=== PATIENT | male | born 1965 | race Hispanic/Latino ===

== ENCOUNTER 2018-09-05 02:46 | Observation (INO) | payer MEDICAID ==
--- NOTE | 2018-09-05 03:22 | ED PDOC ---
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 Patient states he recently had a lithotripsy performed for a 8mm left kidney stone on 08/29/2018 and is scheduled for another lithotripsy for a 4mm right kidney stone. Patient states tonight he developed dysuria with associated LLQ pain, chills, vomiting, and difficulty tolerating PO secondary to vomiting. Patient states he took Tylenol with Codeine, prescribed to him by his urologist, with no significant past medical history. Patient denies any fever, chest pain, shortness of breath, diarrhea, back pain, neck pain, headache, dizziness, or any other complaints. Symptom Onset: Gradual Symptom Course: Unchanged Activities at Onset: Light Context: Home Past Medical History - Provider Review Nursing Documentation Reviewed: Yes - Infectious Disease Hx of Infectious Diseases: None - Cardiac Hx Cardiac Disorders: Yes Hx Hypertension: Yes - Pulmonary Hx Respiratory Disorders: No - Neurological Hx Neurological Disorder: No - HEENT Hx HEENT Disorder: No - Renal Hx Renal Disorder: Yes Hx Kidney Stones: Yes Other/Comment: lithotripsy - Endocrine/Metabolic Hx Endocrine Disorders: No - Hematological/Oncological Hx Blood Disorders: No - Integumentary Hx Dermatological Disorder: No - Musculoskeletal/Rheumatological Hx Musculoskeletal Disorders: No - Gastrointestinal Hx Gastrointestinal Disorders: No - Genitourinary/Gynecological Hx Genitourinary Disorders: No - Psychiatric Hx Psychophysiologic Disorder: No Hx Substance Use: No Family/Social History - Physician Review Nursing Documentation Reviewed: Yes Family/Social History: Unknown Family HX Smoking Status: Never Smoked Hx Alcohol Use: Yes Frequency of alcohol use: Socially Hx Substance Use: No Allergies/Home Meds Allergies/Adverse Reactions: Allergies No Known Allergies Allergy (Verified 09/05/18 02:53) Home Medications: Home Meds Medication Instructions Recorded Confirmed Lisinopril [Zestril] 2.5 mg PO DAILY 09/05/18 09/05/18 amLODIPine [Norvasc] 10 mg PO 1800 09/05/18 09/05/18 Review of Systems - Physician Review All systems were reviewed & negative as marked: Yes - Review of Systems Constitutional: Other (+chills) Eyes: Normal ENT: Normal Respiratory: Normal. absent: SOB, Cough Cardiovascular: Normal. absent: Chest Pain Gastrointestinal: Abdominal Pain, Nausea, Vomiting Genitourinary Male: Dysuria. absent: Frequency, Hematuria, Urinary Output Changes Musculoskeletal: Normal. absent: Back Pain, Neck Pain Skin: Normal. absent: Rash Neurological: Normal. absent: Headache, Dizziness Endocrine: Normal Hemo/Lymphatic: Normal Psychiatric: Normal Physical Exam Vital Signs Reviewed: Yes Vital Signs Temp Pulse Resp BP Pulse Ox 09/05/18 02:55 98.0 F 88 18 155/100 H 98 Temperature: Afebrile Blood Pressure: Hypertensive Pulse: Regular Respiratory Rate: Normal Appearance: Positive for: Well-Appearing, Non-Toxic, Comfortable Pain Distress: None Mental Status: Positive for: Alert and Oriented X 3 - Systems Exam Head: Present: Atraumatic, Normocephalic Pupils: Present: PERRL Extroacular Muscles: Present: EOMI Conjunctiva: Present: Normal Mouth: Present: Moist Mucous Membranes Neck: Present: Normal Range of Motion Respiratory/Chest: Present: Clear to Auscultation, Good Air Exchange. No: Respiratory Distress, Accessory Muscle Use Cardiovascular: Present: Regular Rate and Rhythm, Normal S1, S2. No: Murmurs Abdomen: No: Tenderness, Distention, Peritoneal Signs Back: Present: Normal Inspection Upper Extremity: Present: Normal Inspection. No: Cyanosis, Edema Lower Extremity: Present: Normal Inspection. No: Edema Neurological: Present: GCS=15, CN II-XII Intact, Speech Normal Skin: Present: Warm, Dry, Normal Color. No: Rashes Psychiatric: Present: Alert, Oriented x 3, Normal Insight, Normal Concentration Medical Decision Making ED Course and Treatment: 09/05/18 03:22 Impression: 53 year old male complaining of chills, LLQ pain, vomiting, and dysuria. Plan: -- CT Abdomen and Pelvis w/o contrast -- Labs -- Urinalysis -- IV fluids -- Zofran -- Morphine -- Reassess and disposition Progress Notes: 09/05/18 04:22 CT Abdomen and Pelvis reviewed, shows: The visualized lung bases are unremarkable. Normal unenhanced liver. Normal gallbladder and extrahepatic biliary system. Normal unenhanced spleen. Normal pancreas. Normal bilateral adrenal glands. Bilateral renal stones ranging in size between 3 and 6 mm. 5 obstructing stones in the distal aspect of the left ureter ranging in size between 4 and 6 mm. Normal size of the right kidney. There is no right renal mass. There is no right hydronephrosis. Normal visualized right ureter. Normal size of the left kidney. There is no left renal mass. There is mild left hydroureteronephrosis. Prominent left perinephric fat stranding. Normal visualized stomach. Normal small intestine. Uncomplicated diverticulosis of the colon. The appendix is visualized and appears normal. There is no demonstrated peritoneal fluid. Normal abdominal aorta. Normal inferior vena cava. Normal retroperitoneum. Normal urinary bladder. There is no pelvic mass lesion or lymphadenopathy. There is no pelvic fluid. Bilateral fat containing inguinal hernias without incarceration. Normal osseous structures. IMPRESSION: Bilateral nephrolithiasis. 5 obstructing stones in the distal aspect of the left ureter ranging in size between 4 and 6 mm. Electronically signed on Sep 05, 2018 4:21:31 AM EST by: Chapo Hines M.D., Certified by ABR, MSK, Neuroradiology 09/05/18 05:[address] Beltrán, who will consult on case. 09/05/18 05:[address] Fisher, who is aware and agrees with plan. Accepts pt in to his service. Pt will go to [facility] observation for renal colic. - Lab Interpretations I have reviewed the lab results: Yes - RAD Interpretation Curtain Fitter: Radiologist - Scribe Statement The provider has reviewed the documentation as recorded by the Alicia March Provider Scribe Attestation: All medical record entries made by the Scribchetan were at my direction and personally dictated by me. I have reviewed the chart and agree that the record accurately reflects my personal performance of the history, physical exam, medical decision making, and the department course for this patient. I have also personally directed, reviewed, and agree with the discharge instructions and disposition. Disposition/Present on Arrival - Present on Arrival Any Indicators Present on Arrival: No History of DVT/PE: No History of Uncontrolled Diabetes: No Urinary Catheter: No History of Decub. Ulcer: No History Surgical Site Infection Following: None - Disposition Have Diagnosis and Disposition been Completed?: Yes Diagnosis: Renal colic on left side Disposition: HOSPITALIZED Disposition Time: 05:30 Condition: GOOD
[2018-09-05] MEDS ORDERED: Sodium Chloride 0.9% 1,000 ML IV STA ×2 (03:23→05:32)
[2018-09-05] MEDS ORDERED: Morphine 2 mg/ml ISec IVP STA ×2 (03:24→05:31)
[2018-09-05 03:56] LABS: ALB/GLOB RATIO 1.3 (1.1-1.8); ALBUMIN 4.7 g/dL (3.0-4.8); ALT/SGPT 43 U/L (7-56); AST/SGOT 38 U/L (17-59); BLOOD UREA NITROGEN 21 mg/dL (7-21); CALCIUM 9.7 mg/dL (8.4-10.5); GFR NON-AFRICAN AMERICAN > 60
[2018-09-05 04:14] LABS: BASO # 0.02 K/mm3 (0.0-2.0); BASO % 0.2 % (0.0-3.0); EOS # 0.1 (0.0-0.7); EOS % 0.4 % (1.5-5.0); GRAN # 9.78 (1.4-6.5); GRAN % 84.5 % (50.0-68.0); HEMOGLOBIN 15.4 g/dL (14.0-18.0); LYMPH # 1.2 (1.2-3.4); MEAN CELL VOLUME 88.3 fl (80.0-105.0); MEAN CORPUSCULAR HEMOGLOBIN 30.1 pg (25.0-35.0); MEAN CORPUSCULAR HGB CONC 34.1 g/dl (31.0-37.0); MEAN PLATELET VOLUME 11.4 fl (7.0-11.0); MONO # 0.6 (0.1-0.6); MONO % 4.9 % (1.0-6.0); RBC 5.12 10^6/uL (3.5-6.1); RED CELL DISTRIBUTION WIDTH 12.1 % (11.5-14.5); WHITE BLOOD COUNT 11.6 10^3/uL (4.5-11.0)
[2018-09-05 04:17] LABS: INR 1.03; PARTIAL THROMBOPLASTIN TIME 30.6 Seconds (25.1-36.5); PROTHROMBIN TIME 11.8 SECONDS (9.4-12.5); URINE APPEARANCE CLEAR (CLEAR); URINE BILIRUBIN NEGATIVE (NEGATIVE); URINE BLOOD TRACE-LYSED (NEGATIVE); URINE COLOR YELLOW (YELLOW); URINE GLUCOSE (UA) NEGATIVE (NEGATIVE); URINE LEUKOCYTE ESTERASE NEGATIVE Leu/uL (NEGATIVE); URINE PROTEIN NEGATIVE mg/dL (<30 mg/dL); URINE UROBILINOGEN 0.2 E.U./dL (<1 E.U./dL)
[2018-09-05 04:21] LABS: URINE EPITHELIAL CELLS 0 - 2 /hpf (0-5); URINE RBC 0 - 2 /hpf (0-2); URINE WBC 0 - 2 /hpf (0-6)
[2018-09-05] MEDS ORDERED: cefTRIAXone 1 gm 1 GM/100 ML BAG IVPB STA (04:27)
[2018-09-05] MEDS ORDERED: Morphine 2 mg/ml ISec IVP PRN (05:33)
[2018-09-05] MEDS ORDERED: Sodium Chloride 0.45% 1,000 ML IV SCH (09:00)
--- NOTE | 2018-09-05 09:59 | CT ---
Date of service: 09/05/2018 PROCEDURE: CT Abdomen and Pelvis without intravenous contrast HISTORY: left flank pain COMPARISON: None. TECHNIQUE: Without contrast.. Contrast dose: Radiation dose: Total exam DLP = 878.99 mGy-cm. This CT exam was performed using one or more of the following dose reduction techniques: Automated exposure control, adjustment of the mA and/or kV according to patient size, and/or use of iterative reconstruction technique. FINDINGS: LOWER THORAX: Unremarkable. LIVER: Unremarkable. No gross lesion or ductal dilatation. GALLBLADDER AND BILE DUCTS: Unremarkable. PANCREAS: Unremarkable. No gross lesion or ductal dilatation. SPLEEN: Unremarkable. ADRENALS: Unremarkable. No mass. KIDNEYS AND URETERS: 5 mm stone in the upper pole of the right kidney. Multiple small nonobstructing stones in the left kidney. Multiple stones are seen at the left UVJ. The stones range in size from 4-6 mm. VASCULATURE: Unremarkable. No aortic aneurysm. No aortic atherosclerotic calcification or mural plaque present. BOWEL: Unremarkable. No obstruction. No gross mural thickening. APPENDIX: Unremarkable. Normal appendix. PERITONEUM: Unremarkable. No free fluid. No free air. LYMPH NODES: Unremarkable. No enlarged lymph nodes. BLADDER: Unremarkable. REPRODUCTIVE: Unremarkable. BONES: No acute fracture. OTHER FINDINGS: The report concurs with the preliminary [facility] report IMPRESSION: 5 mm stone in the upper pole of the right kidney. Multiple small nonobstructing stones in the left kidney. Multiple stones are seen at the left UVJ. The stones range in size from 4-6 mm.
[2018-09-05] MEDS: cefTRIAXone 1 gm 1 GM/100 ML BAG IVPB SCH (11:19)
[2018-09-05 12:48] VITALS: BMI 30.4
--- NOTE | 2018-09-05 14:57 | HP ---
DATE OF EXAM: 09/05/2018 HISTORY OF PRESENT ILLNESS: He has been dealing with kidney stones for a while now. He recently just had lithotripsy with Dr. Beltrán and I think he passed four stones, has an 8 mm left kidney stone in that area possible hydronephrosis. He has had left lower quadrant pain, chills, vomiting, very uncomfortable on the left side. He is now with IV fluids, IV antibiotics and possible lithotripsy over a cystoscopy with laser, we will see. He is a 52-year-old white male, I know him for many years. PAST MEDICAL HISTORY: Nephrolithiasis, hypertension and kidney stones. FAMILY HISTORY: Unknown family history. SOCIAL HISTORY: No smoking. Occasional alcohol. No drugs. ALLERGIES: NO KNOWN DRUG ALLERGIES. MEDICATIONS: He takes lisinopril 2.5 mg a day and Norvasc 10 mg daily. REVIEW OF SYSTEMS: He has chills. No acute vision or hearing changes. No shortness of breath or cough. No chest pain or palpitations. He has abdominal pain, nausea and vomiting. No constipation or diarrhea. He has problems urinating. He has got some dysuria. No back pain. He does have left CVA tenderness. No neck pain. No rashes. No headache or dizziness. PHYSICAL EXAMINATION: VITAL SIGNS: He has a 98 temperature, 88 pulse, 18 respiratory rate, 155/100 blood pressure and 98% O2 sat. GENERAL: He will go back on his medications, if it is okay with Dr. Beltrán before he does the procedure. He is well appearing. There is little bit and lot of pain on left side. Alert and oriented x3. HEENT: Head is atraumatic and normocephalic. Extraocular muscles are intact. Pupils reactive to light and accommodation. Throat is moist. NECK: Supple. HEART: Regular rate. Normal S1, S2. LUNGS: Decreased breath sounds, but clear to auscultation. ABDOMEN: Soft and nontender. Positive bowel sounds. He does have left CVA tenderness to palpation. Positive loyds sign. EXTREMITIES: No extremity edema. NEUROLOGIC: GCS is 15. Cranial nerves II-XII grossly intact. Skin is warm and dry. Alert and oriented x3. LYMPHATICS: Thyroid midline. No palpable appreciable lymphadenopathy. LABORATORY DATA: He has bilateral nephrolithiasis 5-mm obstructing stone in the distal aspect of left ureter, possibility of hydronephrosis. Dr. Beltrán is his urologist. He had blood test. His urine showed trace blood. He has 138 sodium, potassium 3.9, BUN 21, creatinine 1, GFR greater than 60, sugar is 147, calcium is 9.7, total bili is 0.9, AST is 30, ALT is 43, alk phos 73, total protein is 8.3, albumin is 4.7 and globulin 3.6. INR is 1.03. White count 7.6, hemoglobin 15.4, hematocrit 45.2 and platelets of 237. He will have a consult with urology, he is n.p.o., IV fluids and I will put him back on his blood pressure medications, Zofran, Rocephin and morphine. He is here for kidney stones and left-sided nephritis. Gino Fisher DO MTDD
--- NOTE | 2018-09-05 16:06 | PCM.URO ---
Urology Progress Note - Objective Lab Studies: Reviewed (observation for one day if not better ureteroscopy and laser tomorrow at 7;30 am) Lab Results Last 24 Hours: Laboratory Results - last 24 hr 09/05/1818 09/05/18 03:28 03:28 03:28 WBC 11.6 H RBC 5.12 Hgb 15.4 Hct 45.2 MCV 88.3 MCH 30.1 MCHC 34.1 RDW 12.1 Plt Count 237 MPV 11.4 H Gran % 84.5 H Lymph % (Auto) 10.0 L [place] % (Auto) 4.9 Eos % (Auto) 0.4 L Baso % (Auto) 0.2 Gran # 9.78 H Lymph # (Auto) 1.2 [place] # (Auto) 0.6 Eos # (Auto) 0.1 Baso # (Auto) 0.02 PT INR APTT Sodium 138 Potassium 3.9 Chloride 99 Carbon Dioxide 27 Anion Gap 16 BUN 21 Creatinine 1.0 Est GFR ( Amer) > 60 Est GFR (Non-Af Amer) > 60 Random Glucose 147 H Calcium 9.7 Total Bilirubin 0.9 AST 38 ALT 43 Alkaline Phosphatase 73 Total Protein 8.3 Albumin 4.7 Globulin 3.6 Albumin/Globulin Ratio 1.3 Urine Color Yellow Urine Appearance Clear Urine pH 6.0 Ur Specific [place] 1.025 Urine Protein Negative Urine Glucose (UA) Negative Urine Ketones Negative Urine Blood Trace-lysed H Urine Nitrate Negative Urine Bilirubin Negative Urine Urobilinogen 0.2 Ur Leukocyte Esterase Negative Urine RBC 0 - 2 Urine WBC 0 - 2 Ur Epithelial Cells 0 - 2 09/05/18 03:28 WBC RBC Hgb Hct MCV MCH MCHC RDW Plt Count MPV Gran % Lymph % (Auto) [place] % (Auto) Eos % (Auto) Baso % (Auto) Gran # Lymph # (Auto) [place] # (Auto) Eos # (Auto) Baso # (Auto) PT 11.8 INR 1.03 APTT 30.6 Sodium Potassium Chloride Carbon Dioxide Anion Gap BUN Creatinine Est GFR ( Amer) Est GFR (Non-Af Amer) Random Glucose Calcium Total Bilirubin AST ALT Alkaline Phosphatase Total Protein Albumin Globulin Albumin/Globulin Ratio Urine Color Urine Appearance Urine pH Ur Specific [place] Urine Protein Urine Glucose (UA) Urine Ketones Urine Blood Urine Nitrate Urine Bilirubin Urine Urobilinogen Ur Leukocyte Esterase Urine RBC Urine WBC Ur Epithelial Cells Intake & Output: Intake & Output 09/04/18 09/05/18 09/05/18 18:59 06:59 18:59 Weight 212 lb Other: Voiding Method Urinal Vital Signs: Vital Signs - 24 hr 09/05/18 09/05/18 09/05/18 02:55 05:33 05:44 Temperature 98.0 F Pulse Rate 88 74 Pulse Rate [ 65 Brachial] Respiratory 18 20 18 Rate Blood Pressure 155/100 H 153/85 H O2 Sat by Pulse 98 94 L Oximetry 09/05/18 09/05/18 09/05/18 06:00 11:53 11:54 Temperature 98 F Pulse Rate 65 65 Pulse Rate [ Brachial] Respiratory 20 Rate Blood Pressure 141/94 H 141/94 H 141/94 H O2 Sat by Pulse 98 Oximetry 09/05/18 14:00 Temperature 99.6 F Pulse Rate 70 Pulse Rate [ Brachial] Respiratory 20 Rate Blood Pressure 142/98 H O2 Sat by Pulse 94 L Oximetry
[2018-09-06] MEDS ORDERED: Iohexol 240 (50 ml) ONE (07:20)
[2018-09-06] MEDS ORDERED: Propofol 10 mg/ml Inj (20 ML) ONE (07:36)
[2018-09-06] MEDS ORDERED: Midazolam 2 MG/2 ML VIAL ONE (07:59)
[2018-09-06] MEDS ORDERED: Oxycodone/Acetaminophen 5/325 mg Tab PO PRN (07:59)
[2018-09-06] MEDS ORDERED: Magnesium Hydroxide Susp 30 ml UD PO ONE (08:00)
[2018-09-06] MEDS ORDERED: cefTRIAXone (Rocephin) 1 gm Inj ONE (08:16)
[2018-09-06] MEDS ORDERED: Phenylephrine 10 mg/ml Inj ONE (08:30)
[2018-09-06] MEDS ORDERED: Iohexol 240 (50 ml) IVP ONE ×2 (08:37)
[2018-09-06] MEDS ORDERED: HYDROmorphone 1 mg/ml ISec IVP PRN (09:07)
[2018-09-06 09:14] VITALS: RESP 12; TEMP 98
[2018-09-06] MEDS ORDERED: Lactated Ringer's 1,000 ML IV SCH (09:15)
[2018-09-06] MEDS ORDERED: Gentamicin 80 mg/2mL Inj. ONE (09:27)
--- NOTE | 2018-09-06 09:28 | RAD ---
Date of service: 09/05/2018 HISTORY: compare with previous film // describe distal sto COMPARISON: None available. FINDINGS: BOWEL: Normal. No obstruction. No free air. Mild constipation right-sided: BONES: Normal. OTHER FINDINGS: None. IMPRESSION: No active disease.
[2018-09-06] MEDS ORDERED: HYDROmorphone 1 mg/ml ISec ONE (09:33)
--- NOTE | 2018-09-06 10:45 | RAD ---
Date of service: 09/06/2018 PROCEDURE: Fluoroscopy up to 1 hr HISTORY: LEFT RETRO GRADE STONE REMOVAL COMPARISON: TECHNIQUE: Fluoroscopy was provided in the operating room. Fourteen images were submitted showing passage of wires and instruments into the left ureter. FINDINGS: IMPRESSION: As above
[2018-09-06 10:49] VITALS: O2SAT 96
--- NOTE | 2018-09-06 11:38 | DS ---
HISTORY OF PRESENT ILLNESS: Status post fifth cystoscopy with Dr. Beltrán where they did a laser of some kidney stones and he left a stent in and he could pull out in the next 2 days. He is on Dilaudid, lactated Ringer, morphine, Norvasc, Percocet, Rocephin, IV fluids, Toradol, Zestril, and Zofran. I saw him in the PACU. I discussed with Dr. Beltrán. He will have to be discharged later this afternoon. PHYSICAL EXAMINATION: VITAL SIGNS: He has a 98 temperature, 78 pulse, 140/95 blood pressure, 12 respiratory rate, and 96% O2 sat on nasal cannula 2 liters. HEENT: Head is atraumatic and normocephalic. Very groggy. HEART: Regular rate. LUNGS: Decreased breath sounds, but clear. ABDOMEN: Soft. EXTREMITIES: No edema. He had kidney stones with mild hydronephrosis. LABORATORY DATA: He has 11.6 white count, 15.4 hemoglobin, 45.2 hematocrit with 237 platelets. 138 sodium, potassium 3.9, BUN 21, and creatinine 1, GFR is greater than 60. Blood sugar 147. Calcium is 9.7, total bilirubin is 0.9, AST is 30, ALT is 43, alkaline phosphatase 73, and total protein 8.3. ASSESSMENT AND PLAN: He will be discharged later this afternoon, be with stent for 2 days, then he can pull it out. He seems to go back to his regular medications, which are amlodipine and lisinopril what sort of medication Dr. Beltrán wants him to have and I will see him in the office next week. The patient with kidney stones and mild hydronephrosis. He is in observation. Gino Fisher DO
[2018-09-06] MEDS: cefTRIAXone 1 gm 1 GM/100 ML BAG IVPB SCH (11:42)
[2018-09-06 11:43] VITALS: BP 143/85; PULSE 75
[2018-09-06 11:49] LABS: HEMOGLOBIN 14.7 g/dL (14.0-18.0); MEAN CELL VOLUME 89.4 fl (80.0-105.0); MEAN CORPUSCULAR HEMOGLOBIN 29.9 pg (25.0-35.0); MEAN CORPUSCULAR HGB CONC 33.5 g/dl (31.0-37.0); MEAN PLATELET VOLUME 10.7 fl (7.0-11.0); RBC 4.91 10^6/uL (3.5-6.1); RED CELL DISTRIBUTION WIDTH 12.2 % (11.5-14.5); WHITE BLOOD COUNT 7.8 10^3/uL (4.5-11.0)
[2018-09-06 12:07] LABS: ALB/GLOB RATIO 1.3 (1.1-1.8); ALBUMIN 4.3 g/dL (3.0-4.8); ALT/SGPT 35 U/L (7-56); AST/SGOT 26 U/L (17-59); BLOOD UREA NITROGEN 21 mg/dL (7-21); CALCIUM 9.2 mg/dL (8.4-10.5); GFR NON-AFRICAN AMERICAN > 60
--- NOTE | 2018-09-09 10:52 | CON ---
DATE: 09/05/2018 REASON FOR CONSULTATION: Severe left renal colic. HISTORY OF PRESENT ILLNESS: Mr. is a very pleasant gentleman who last week underwent a shockwave lithotripsy. On the left side, he has bilateral stone disease; in fact he is scheduled for 09/06/2018; although we may have to delay this for right-sided as well. This procedure itself went uncomplicated. During the course of the week, we had recommended the patient to take antibiotics and Flomax and Motrin. But for various reasons, he was unable to take everything. Side effects and worries about side effects. Either way, during the course of the week, he has been doing reasonably well . Last evening, he called me that he was having severe pain; we brought him to the emergency room. We did a CAT scan overnight; we actually spoke about 4 o'clock this morning. I showed him the CAT scan results and he has distal ureteral stones of collection what we call is urology Steinstrasse. The patient is now admitted for observation and analgesics and fluid in the hope that may be the stone will pass. He has about 4 or 5 stones on top of each other. Regarding his original left renal stone on the CAT scan, there are 1 or 2 little pieces of stone fragments still there. But the main obstruction is below here. PAST MEDICAL AND SURGICAL HISTORY: As listed on the chart. Patient of Dr. Fisher's. REVIEW OF SYSTEMS: Listed above, otherwise noncontributory. SOCIAL HISTORY: Essentially unremarkable. PHYSICAL EXAMINATION: GENERAL: A well-nourished male, currently he is resting comfortably. VITALS SIGNS: Within normal limits. LUNGS: Clear. HEART: Normal S1 and S2. ABDOMEN: Soft. There is no rebound. No guarding. There is no evidence of acute abdomen. GENITOURINARY: Normal phallus without discharge. No testicular masses. The remainder of the exam is otherwise unremarkable. (Rectal exam deferred, so cysto mentioned in this dictation is a normal 20 g prostate, felt smooth). CT scan as noted again the presence of distal ureteral stone; I do want to mention of course also we can still see his right stone. We haven't examined the of this. In terms of his left side, we see there is a left distal ureteral stone. DIAGNOSES: Severe left renal colic, left hydronephrosis; all secondary to distal ureteral stones; 4 or 5 in total. What we call Steinstrasse. PLAN: As follows. We are going to observe the patient for now and see how he does; we offered an immediate cystoscopy, ureteroscopy, laser lithotripsy versus observation; may be he will pass. The patient is on analgesics, anti-inflammatories, IV fluids, pain control. We will monitor him closely and then make further plans. clinically, we discussed options risks, benefits, and treatment alternatives. Plans are to follows. Thank you for the Urology consult. Mark Beltrán MD
--- NOTE | 2018-09-09 15:22 | OP ---
PROCEDURE DATE: 09/06/2018 PREOPERATIVE DIAGNOSES: Steinstrasse, retained stones, left hydronephrosis, left stone fragments, severe renal colic, and hydronephrosis. POSTOPERATIVE DIAGNOSES: Steinstrasse, retained stones, left hydronephrosis, left stone fragments, severe renal colic, and hydronephrosis. PROCEDURES: Cystoscopy, ureteroscopy, laser lithotripsy of stones, stone basketing, and insertion of a left double J stent, left retrograde pyelogram. COMPLICATIONS: There were no complications. ESTIMATED BLOOD LOSS: Less than 10 mL. OPERATIVE FINDINGS: At the termination of the procedure, the left double J stent was inserted via the urethra with dangles. INDICATIONS: See the history and physical and consultation. The patient is a very pleasant gentleman who has bilateral stone disease. Last week on 08/30/2018, we did a shockwave lithotripsy in [place] [facility], uncomplicated. During the course of the week, the patient was not able to take his Flomax because they gave him a bad feeling. He did not take his antibiotics. During the course of the week, we have been planning on bringing the patient back today, on 09/06/2018, for an ESWL on the other side. Since Sunday night on 09/04/2018, the patient started developing colic. We brought him into the hospital back and at the time of admission to the hospital, we found him to have distal ureteral stones on the CT scan. I have been watching the patient for the last day in hope that he may be able to pass but since it has not passed, we discussed the options that he is here now for the above procedure. UROLOGY OPERATIVE FINDINGS: 1. Normal anterior urethra. 2. No strictures. 3. Normal prostate for age about 2 cm in length, moderate visually occlusive. 4. The bladder mucosa is relatively normal. 5. There is a stone right embedded at the ureteral orifice and then, there are several stones behind that. We were able to gain access to the ureteral orifice straight to the stones and then we basket the stones. I placed double-J stent in the urinary bladder for further straining. DESCRIPTION OF PROCEDURE: After obtaining informed consent, after discussing options, risks, benefits, and treatment at length. The patient is a very well gentleman. We discussed the benefits, the pros and cons. I have discussed all the above options with the patient. He is here now for the above procedure. The patient was given antibiotic prophylaxis. The patient was placed on the table, consent signed, confirmed the patient positioning. We have arranged for laser . The patient is in lithotomy position. Junior Linux Administrator films were performed. The entire procedure was done with fluoroscopy and also the camera to have my assistant brand manager aid me. Cystoscope via urethra. Anterior urethra was normal. No strictures. Verumontanum normal. We identified the ureteral orifice as pictures were taken. Demonstrating this, there is a stone at the orifice. Once we were able to loose the mid stone, we were able to gain access. I placed 2 wires up to the kidney and we confirmed our positioning. We now provided laser energy to the stones and worked on steinstrasse. We then applied the stone basket and we removed the stones from the ureteral orifice, put them in the bladder. We now inspected . There may be a little sound that is just floating around the mid ureter, but essentially all within normal limits. The patient should be able to pass everything. At this point, we put a double J stent with dangles, so that the patient will be able to remove it. We took multiple pictures of the artery, which also shows the patient some of the edema and our recommendations of keeping the catheter and the double J stenting at this point. Mark Beltrán MD
== END 2018-09-06 14:01 | disposition home or self-care (01) ==
LOC: ED 02:46 → ERH 05:31 → 5RSO 06:51
PROVIDERS: ADMIT Family Medicine; ATTEND Family Medicine
DX: N13.2 Hydronephrosis with renal and ureteral calculous obstruction (principal); I10 Essential (primary) hypertension
CPT/HCPCS: 36415; 52356; 74022; 74176; 76000; 80053; 81001; 85025; 85027; 85610; 85730; 87040; 96365; 96366; 96375; 96376; 99285; C1758; C1769; C2617; G0378; J0696; J1100; J1170; J1580; J1885; J2001; J2250; J2270; J2370; J2405; J2704; J2765; J3010; J7030; Q9966

== ENCOUNTER 2019-01-15 15:33 | Outpatient (CLI) | payer MEDICAID | END 2019-01-15 15:34 | disposition home or self-care (01) | LOC: RAD 15:33 ==